=== PATIENT | male | born 1980 | race Caucasian/White ===

== ENCOUNTER 2020-01-07 19:23 | Emergency (ER) | payer SELFPAY ==
[~2020-01-07] VITALS: Ht 187.9 cm; Wt 86.2 kg
[~2020-01-07 19:23] MED LIST: CYCLOBENZAPRINE10 MG PO; GABAPENTIN600 MG PO; MELOXICAM7.5 MG PO; PERCOCET 325 MG1 TA2 PO; SALSALATE750 MG PO
[2020-01-07] MEDS ORDERED: AMOXICILLIN500 M3 PO (20:00)
[2020-01-07] MEDS ORDERED: ANAPROX DS550 MG PO (20:00)
== END 2020-01-07 20:17 | disposition home or self-care (01) ==
LOC: ED 19:23
DX: K02.9 Dental caries, unspecified (principal); F17.200 Nicotine dependence, unspecified, uncomplicated

== ENCOUNTER 2021-11-28 12:42 | Emergency (ER) | payer BC ==
[~2021-11-28] VITALS: Wt 88.5 kg
[~2021-11-28 12:42] MED LIST changes: +AMOXICILLIN500 M3 PO; +ANAPROX DS550 MG PO
== END 2021-11-28 15:27 | disposition home or self-care (01) ==
LOC: ED 12:42
DX: S93.602A Unspecified sprain of left foot, initial encounter (principal); W45.8XXA Other foreign body or object entering through skin, initial encounter; Y93.89 Activity, other specified; Y92.89 Other specified places as the place of occurrence of the external cause; Y99.8 Other external cause status

== ENCOUNTER 2023-01-07 22:35 | Emergency (ER) | payer OTHER | END 2023-01-08 00:40 | disposition home or self-care (01) | LOC: ED 22:35 | DX: T63.451A Toxic effect of venom of hornets, accidental (unintentional), initial encounter (principal); R11.0 Nausea; Z98.890 Other specified postprocedural states; F90.9 Attention-deficit hyperactivity disorder, unspecified type; Y92.009 Unspecified place in unspecified non-institutional (private) residence as the place of occurrence of the external cause ==

== ENCOUNTER → 2024-12-23 | Outpatient (CLI) | payer OTHER | END | disposition home or self-care (01) | LOC: CT 02:48 | PROVIDERS: ATTEND Internal Medicine | DX: J34.89 Other specified disorders of nose and nasal sinuses (principal); J32.8 Other chronic sinusitis ==